=== PATIENT | male | born 1990 | race Two or more races ===

== ENCOUNTER 2021-11-11 15:31 | Inpatient (IN) | payer OTHER ==
[2021-11-11] MEDS ORDERED: IBUPROFEN 400 MG TABLET (FP) PO PRN (16:35)
[2021-11-11] MEDS ORDERED: METHOCARBAMOL 500 MG TABLET PO PRN (16:35)
[2021-11-11] MEDS ORDERED: MENTHOL/PHENOL 1 EACH UD MM PRN (16:35)
[2021-11-11] MEDS ORDERED: MAGNESIUM HYDROX 2400MG/30ML ORAL SUSPENSION 30 ML CUP PO PRN (16:35)
[2021-11-11] MEDS ORDERED: MAG HYDROX/AL HYDROX/SIMETH 30 ML UNIT-DOSE CUP PO PRN (16:35)
[2021-11-11] MEDS ORDERED: BISMUTH SUBSALICYLATE 524 MG/30 ML PO PRN (16:35)
[2021-11-11] MEDS ORDERED: MAGNESIUM CITRATE 300 ML BOTTLE PO PRN (16:35)
[2021-11-11] MEDS ORDERED: ONDANSETRON *ODT* 4 MG TABLET SL PRN (16:35)
[2021-11-11] MEDS ORDERED: ACETAMINOPHEN 325 MG TABLET (FP) PO PRN ×2 (16:35)
[2021-11-11] MEDS ORDERED: diazePAM 5 MG TABLET PO PRN (16:37)
[2021-11-11 17:39] VITALS: BMI 23.8
[2021-11-11] MEDS: THIAMINE HCL 100 MG TABLET (FP) PO SCH (23:14)
[2021-11-11] MEDS: hydrOXYzine PAMOATE 25 MG CAPSULE (FP) PO PRN (23:15)
[2021-11-11] MEDS: MELATONIN 5 MG TABLETS PO SCH (23:40)
[2021-11-12] MEDS: PRENATAL VITAMINS W/ FOLIC ACID TABLET (FP) PO SCH (10:40)
[2021-11-12] MEDS: MELATONIN 5 MG TABLETS PO SCH (22:20)
[2021-11-12] MEDS: THIAMINE HCL 100 MG TABLET (FP) PO SCH (22:20)
[2021-11-13] MEDS: hydrOXYzine PAMOATE 25 MG CAPSULE (FP) PO PRN ×2 (10:04→22:43)
[2021-11-13] MEDS: PRENATAL VITAMINS W/ FOLIC ACID TABLET (FP) PO SCH (10:04)
[2021-11-13 11:51] LABS: HEMATOCRIT 43.2 % (35.4-49); HEMOGLOBIN 13.8 GM/dL (11.7-16.9); MCH 30.4 pg (25.7-33.7); MEAN CELL VOLUME 94.9 fl (80-96); MEAN PLT VOLUME 9.6 fl (7.5-11.1); PLATELET COUNT 254 10^3/uL (134-434); RBC 4.56 M/mm3 (4.00-5.60); RDW 13.2 % (11.9-15.9); WHITE BLOOD COUNT 4.5 K/mm3 (4.0-10.0)
[2021-11-13 11:53] LABS: CALCIUM 9.6 mg/dL (8.5-10.1)
[2021-11-13 11:54] LABS: BLOOD UREA NITROGEN 8.8 mg/dL (7-18)
[2021-11-13 11:57] LABS: CREATININE 0.8 mg/dL (0.55-1.3)
[2021-11-13 11:59] LABS: BILIRUBIN,TOTAL 0.3 mg/dL (0.2-1); TOT PROT 7.1 g/dl (6.4-8.2)
[2021-11-13] MEDS: NICOTINE POLACRILEX 2 MG GUM BUC PRN (19:33)
[2021-11-13] MEDS: THIAMINE HCL 100 MG TABLET (FP) PO SCH (22:43)
[2021-11-13] MEDS: MELATONIN 5 MG TABLETS PO SCH (22:43)
[2021-11-14 08:56] VITALS: BP 104/83; PULSE 85; TEMP 97.5
[2021-11-14] MEDS: PRENATAL VITAMINS W/ FOLIC ACID TABLET (FP) PO SCH (10:02)
[2021-11-14] MEDS: NICOTINE POLACRILEX 2 MG GUM BUC PRN (10:03)
== END 2021-11-14 12:12 | disposition other institution (70) | DRG 775 ==
LOC: YASAS 15:31 → Y6N 16:50
PROVIDERS: ADMIT Allergy & Immunology; ATTEND Allergy & Immunology
PROC: HZ2ZZZZ Detoxification Services for Substance Abuse Treatment (ICD-10-PCS; principal; 2021-11-11)
DX: F10.230 Alcohol dependence with withdrawal, uncomplicated (principal); F10.220 Alcohol dependence with intoxication, uncomplicated; F17.210 Nicotine dependence, cigarettes, uncomplicated; Z87.09 Personal history of other diseases of the respiratory system; Z91.010 Allergy to peanuts
CPT/HCPCS: 36415; 80053; 85027; 86780; C9803; U0003; U0005

== ENCOUNTER 2021-11-14 13:01 | Inpatient (IN) | payer OTHER ==
[~2021-11-14 13:01] MED LIST: ACETAMINOPHEN 325 MG TABLET (FP) PO PRN; IBUPROFEN 400 MG TABLET (FP) PO PRN; LOPERAMIDE HCL 2 MG CAPSULE PO PRN; MAGNESIUM CITRATE 300 ML BOTTLE PO PRN; MAGNESIUM HYDROX 2400MG/30ML ORAL SUSPENSION 30 ML CUP PO PRN; NICOTINE 10 MG CARTRIDGE (INHALER) IH PRN; P-EPHED 60MG/TRIPROLIDI 2.5MG TABLET PO PRN; guaiFENesin 200 MG/10 ML 10 ML UNIT-DOSE CUPS PO PRN
[2021-11-14] MEDS: hydrOXYzine PAMOATE 25 MG CAPSULE (FP) PO SCH ×3 (14:35→21:25)
[2021-11-14] MEDS: THIAMINE HCL 100 MG TABLET (FP) PO SCH (21:25)
[2021-11-14] MEDS: MELATONIN 5 MG TABLETS PO SCH (21:25)
[2021-11-15] MEDS: hydrOXYzine PAMOATE 25 MG CAPSULE (FP) PO SCH ×2 (06:23→09:40)
[2021-11-15] MEDS: NICOTINE 7 MG/24 HOURS TOPICAL PATCH TD SCH (09:39)
[2021-11-15] MEDS: PRENATAL VITAMINS W/ FOLIC ACID TABLET (FP) PO SCH (09:40)
[2021-11-15] MEDS: NICOTINE POLACRILEX 2 MG GUM BUC PRN ×3 (16:41→21:38)
[2021-11-15] MEDS: THIAMINE HCL 100 MG TABLET (FP) PO SCH (21:37)
[2021-11-15] MEDS: MELATONIN 5 MG TABLETS PO SCH (21:37)
[2021-11-15] MEDS: hydrOXYzine PAMOATE 25 MG CAPSULE (FP) PO PRN (21:39)
[2021-11-16] MEDS: NICOTINE POLACRILEX 2 MG GUM BUC PRN ×5 (06:29→21:19)
[2021-11-16] MEDS: hydrOXYzine PAMOATE 25 MG CAPSULE (FP) PO PRN (06:30)
[2021-11-16] MEDS: PRENATAL VITAMINS W/ FOLIC ACID TABLET (FP) PO SCH (09:41)
[2021-11-16] MEDS: NICOTINE 7 MG/24 HOURS TOPICAL PATCH TD SCH (09:41)
[2021-11-16] MEDS: MELATONIN 5 MG TABLETS PO SCH (21:18)
[2021-11-16] MEDS: THIAMINE HCL 100 MG TABLET (FP) PO SCH (21:18)
[2021-11-17] MEDS: hydrOXYzine PAMOATE 25 MG CAPSULE (FP) PO PRN (06:19)
[2021-11-17] MEDS: NICOTINE POLACRILEX 2 MG GUM BUC PRN ×5 (06:20→21:22)
[2021-11-17] MEDS ORDERED: MASKS NR ONE (06:55)
[2021-11-17] MEDS: PRENATAL VITAMINS W/ FOLIC ACID TABLET (FP) PO SCH (09:31)
[2021-11-17] MEDS: NICOTINE 7 MG/24 HOURS TOPICAL PATCH TD SCH (09:31)
[2021-11-17] MEDS: MELATONIN 5 MG TABLETS PO SCH (21:21)
[2021-11-17] MEDS: THIAMINE HCL 100 MG TABLET (FP) PO SCH (21:22)
[2021-11-17] MEDS: MAG HYDROX/AL HYDROX/SIMETH 30 ML UNIT-DOSE CUP PO PRN (22:42)
[2021-11-18] MEDS: hydrOXYzine PAMOATE 25 MG CAPSULE (FP) PO PRN (06:10)
[2021-11-18] MEDS: MAG HYDROX/AL HYDROX/SIMETH 30 ML UNIT-DOSE CUP PO PRN (06:10)
[2021-11-18] MEDS: NICOTINE 7 MG/24 HOURS TOPICAL PATCH TD SCH (09:46)
[2021-11-18] MEDS: PRENATAL VITAMINS W/ FOLIC ACID TABLET (FP) PO SCH (09:46)
[2021-11-18] MEDS: NICOTINE POLACRILEX 2 MG GUM BUC PRN ×5 (09:47→22:03)
[2021-11-18] MEDS: THIAMINE HCL 100 MG TABLET (FP) PO SCH (22:02)
[2021-11-18] MEDS: MELATONIN 5 MG TABLETS PO SCH (22:02)
[2021-11-19] MEDS: NICOTINE POLACRILEX 2 MG GUM BUC PRN ×4 (06:20→21:06)
[2021-11-19] MEDS: hydrOXYzine PAMOATE 25 MG CAPSULE (FP) PO PRN (09:59)
[2021-11-19] MEDS: NICOTINE 7 MG/24 HOURS TOPICAL PATCH TD SCH (11:05)
[2021-11-19] MEDS: PRENATAL VITAMINS W/ FOLIC ACID TABLET (FP) PO SCH (11:06)
[2021-11-19] MEDS: THIAMINE HCL 100 MG TABLET (FP) PO SCH (21:06)
[2021-11-19] MEDS: MELATONIN 5 MG TABLETS PO SCH (21:06)
[2021-11-20] MEDS: NICOTINE POLACRILEX 2 MG GUM BUC PRN ×4 (06:15→21:40)
[2021-11-20] MEDS: NICOTINE 7 MG/24 HOURS TOPICAL PATCH TD SCH (09:32)
[2021-11-20] MEDS: PRENATAL VITAMINS W/ FOLIC ACID TABLET (FP) PO SCH (09:32)
[2021-11-20] MEDS: hydrOXYzine PAMOATE 25 MG CAPSULE (FP) PO PRN (09:33)
[2021-11-20] MEDS: MELATONIN 5 MG TABLETS PO SCH (21:40)
[2021-11-20] MEDS: THIAMINE HCL 100 MG TABLET (FP) PO SCH (21:40)
[2021-11-21] MEDS: hydrOXYzine PAMOATE 25 MG CAPSULE (FP) PO PRN (06:12)
[2021-11-21 07:21] VITALS: BP 125/80; PULSE 78; TEMP 96.9
[2021-11-21] MEDS: PRENATAL VITAMINS W/ FOLIC ACID TABLET (FP) PO SCH (09:26)
[2021-11-21] MEDS: NICOTINE 7 MG/24 HOURS TOPICAL PATCH TD SCH (09:26)
[2021-11-21] MEDS: NICOTINE POLACRILEX 2 MG GUM BUC PRN (09:26)
== END 2021-11-21 10:21 | disposition home or self-care (01) | DRG 772 ==
LOC: YASAS 13:01 → Y3E 13:02 → Y3W 11-17 14:24
PROVIDERS: ADMIT Allergy & Immunology; ATTEND Allergy & Immunology
PROC: HZ42ZZZ Group Counseling for Substance Abuse Treatment, Cognitive-Behavioral (ICD-10-PCS; principal; 2021-11-14)
DX: F10.20 Alcohol dependence, uncomplicated (principal)
CPT/HCPCS: 73560-TC-RT-FY; C9803; U0003; U0005